=== PATIENT | female | born 1945 | race Caucasian/White ===

== ENCOUNTER 2018-07-23 09:12 | Inpatient (IN) ==
[2018-07-23] MEDS ORDERED: Metoprolol Tartrate 25 MG Tablet PO SCH (09:42)
[2018-07-23] MEDS ORDERED: Chlorhexidine Gluconate 2% 1 Pack (2 Cloths) TOPICAL SCH (09:42)
[2018-07-23] MEDS ORDERED: Ciprofloxacin 400 MG/200 ML 400 MG/200 ML PIGGYBACK IV.SIG SCH (10:00)
[2018-07-23] MEDS ORDERED: Sodium Chlor 0.9% Inj 500 ML IV.SIG SCH (10:00)
[2018-07-23] MEDS ORDERED: Neostigmine Inj 5 MG/5 ML Syringe IV.PUSH ONE (12:46)
[2018-07-23] MEDS ORDERED: Lidocaine PF 1% Inj 5 ML Syringe OTHER ONE (12:46)
[2018-07-23] MEDS ORDERED: Glycopyrrolate Inj 1 MG/5 ML Syringe IV.PUSH ONE (12:46)
[2018-07-23] MEDS ORDERED: Post-op Orders (for Pharmacy) OTHER ONE (14:47)
[2018-07-23] MEDS ORDERED: Naloxone Inj 0.4 MG/ML Vial IV.PUSH PRN ×2 (14:47→14:50)
[2018-07-23] MEDS ORDERED: HYDROmorphone PCA Inj 6 MG/30 ML PCA.VIAL PCA PRN (14:50)
--- NOTE | 2018-07-23 15:02 | P.OP ---
- Preoperative Diagnosis (1) Lymphoma of gastrointestinal tract - Postoperative Diagnosis (1) Lymphoma of gastrointestinal tract Date of procedure: 07/23/18 Procedure: Ileocecectomy Anesthesia: GETA Surgeon: Kevin Medina MD Machine Tack Puller: Gordo HYATT Estimated blood loss (mL): 50 Pathology: other (terminal ileum, cecum, including large lymphoma off cecum) Operation and Findings: Indications: The patient is a 73-year-old female found to have a large nearly obstructing cecal mass on colonoscopy while under surveillance for a possible lymphoma in that site previously. I was consulted for urgent surgical intervention. 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 The patient underwent PET CT scan which showed extremely hypermetabolic mass in the cecum and 1 para-aortic hypermetabolic lymph node. The patient was seen by Dr. Fournier of oncology. After discussion with Dr. Fournier, my partner Dr. Gregg, and the patient we decided to proceed with surgical intervention for the large near obstructing lymphoma of the cecum. Primary reasons are due to the near obstructing nature with weight loss, vomiting; and due to concerns for possible bowel perforation during chemotherapy treatment secondary to rapid shrinkage of this particular type of lymphoma. Operative findings: Very large mass of the cecum and proximal ascending colon. The ureter was beginning to be pulled up towards the colon and was identified and avoided. The patient was taken to the operating room placed in supine position. General endotracheal anesthesia was induced and the abdomen was prepped and draped in usual sterile fashion. Surgical timeout was performed to verify correct patient procedure and site. Appropriate preoperative antibiotics were administered. A midline laparotomy incision was made. Dissection carried out through subcutaneous tissue with electrocautery and hemostasis achieved. Fascia was incised with electrocautery and the peritoneum entered sharply. The abdominal cavity was entered and there was noted to be the large mass in the right lower to mid abdomen which was fairly mobile. Peritoneum of the terminal ileum and ascending colon was incised with electrocautery. The hepatic flexure was taken down with the Enseal bipolar cautery device. The second portion of the duodenum was identified and avoid. The ureter on the right side was pulled up towards the colon. This was carefully identified and kept laterally from the colonic dissection. A point on the terminal ileum was chosen for transection. A defect in the mesentery was created and it was divided with a 75 mm blue load CECILE. An area in the ascending colon distal to the mass was divided with the CECILE 75 mm blue load stapler. The mesentery was divided with the Enseal device. A 0 Vicryl tie was placed on the ileocolic pedicle. The terminal ileum and ascending colon were then anastomosed in a [id number] functional end-to-end fashion using the 75 mm blue load stapler and the TX 60 was used to close the common enterotomy. There is no bleeding or tension at the anastomosis site. 3-0 silk suture was placed at the end of the staple line. The anastomosis was widely patent. The mesentery defect was then closed with running 2-0 silk suture. The abdomen was irrigated copiously with 2 L of warm normal saline. The omentum was replaced over the intestines. The fascia was then closed with running #1 looped PDS suture. The wound was irrigated and skin closed with a wide skin stapler. The patient tolerated the procedure well and was extubated and taken to PACU in stable condition.
[2018-07-23] MEDS ORDERED: Morphine Inj 4 MG/ML Vial ONE (15:10)
[2018-07-23] MEDS ORDERED: fentaNYL Citrate Inj 100 MCG/2 ML Ampul ONE (15:10)
[2018-07-23] MEDS ORDERED: *Ondansetron Inj 4 MG/2 ML Vial PERIprocedural Use ONLY ONE (15:15)
[2018-07-23] MEDS: Ketorolac Inj 30 MG/ML (IVP) Vial IV.PUSH SCH ×2 (16:02→20:30)
[2018-07-23] MEDS: hydroCHLOROthiazide 25 MG Tablet PO SCH (20:32)
[2018-07-23] MEDS ORDERED: PROPRANOLOL 80 MG PO SCH (21:00)
[2018-07-24] MEDS: Ketorolac Inj 30 MG/ML (IVP) Vial IV.PUSH SCH ×4 (02:37→23:53)
[2018-07-24] MEDS: Levothyroxine 88 MCG Tablet PO SCH (05:06)
[2018-07-24 05:37] LABS: Baso % (Auto) 0.1 % (0.0-2.0); Hematocrit 33.8 % (35.0-46.0); Hemoglobin 11.5 gm/dL (11.6-15.3); Lymph # (Auto) 0.5 th/mm3 (1.0-4.8); Lymph % (Auto) 11.9 % (9.0-44.0); Mean Corpuscular HGB Conc 33.9 % (32.0-36.0); Mean Corpuscular Hemoglobin 31.2 pg (27.0-34.0); Mean Corpuscular Volume 91.9 fL (80.0-100.0); Mean Platelet Volume 7.4 fL (7.0-11.0); Mono # (Auto) 0.1 th/mm3 (0.0-0.9); Mono % (Auto) 3.4 % (0.0-8.0); Neut # (Auto) 3.6 th/mm3 (1.8-7.7); Neut % (Auto) 84.6 % (16.0-70.0); Platelet Count 277 th/mm3 (150-450); Red Blood Count 3.68 mil/mm3 (4.00-5.30); Red Cell Distribution Width 13.1 % (11.6-17.2); White Blood Count 4.3 th/mm3 (4.0-11.0)
[2018-07-24 06:08] LABS: Carbon Dioxide 25.9 meq/L (21.0-32.0); Potassium 4.6 meq/L (3.5-5.1)
[2018-07-24] MEDS: hydroCHLOROthiazide 25 MG Tablet PO SCH ×2 (08:47→20:14)
[2018-07-24] MEDS: Propranolol 40 MG Tablet PO SCH ×2 (08:47→20:12)
--- NOTE | 2018-07-24 09:04 | P.PNGS ---
Subjective Interval history: Tolerating clears. In the chair. Pain controlled with enterer. Physical Exam Vital signs: Vital Signs 07/23/18 10:42 07/23/18 14:57 07/23/18 15:00 Temperature 97.5 F L 97.6 F Pulse Rate 69 65 62 Respiratory Rate 20 12 12 Blood Pressure 111/50 L 156/69 H 147/65 H Pulse Oximetry 100 100 100 07/23/18 15:15 07/23/18 15:30 07/23/18 15:45 Temperature Pulse Rate 57 L 56 L 56 L Respiratory Rate 12 12 11 L Blood Pressure 145/65 H 139/65 138/62 Pulse Oximetry 97 95 95 07/23/18 16:00 07/23/18 16:15 07/23/18 16:30 Temperature 97.6 F Pulse Rate 55 L 56 L 53 L Respiratory Rate 12 15 16 Blood Pressure 136/59 L 133/63 130/60 Pulse Oximetry 91 L 95 97 07/23/18 16:32 07/23/18 18:09 07/23/18 18:37 Temperature Pulse Rate Respiratory Rate 19 5 L 5 L Blood Pressure Pulse Oximetry 07/23/18 20:00 07/23/18 22:54 07/24/18 00:00 Temperature 97.2 F L 97.1 F L Pulse Rate 56 L 55 L Respiratory Rate 16 17 18 Blood Pressure 103/58 L 106/54 L Pulse Oximetry 90 L 97 07/24/18 08:00 Temperature 97.4 F L Pulse Rate 58 L Respiratory Rate 16 Blood Pressure 108/54 L Pulse Oximetry 98 Intake & Output 07/23/18 07/24/18 07/24/18 18:59 06:59 18:59 Intake Total 2300 / 2300 1920 / 1920 Output Total 220 / 220 500 / 500 Balance 2080 / 2080 1420 / 1420 Weight 68.8 kg 69.1 kg Intake: IV 1800 / 1800 1200 / 1200 LR 1000 mL Inj 1,000 ML @ 100 1000 / 1000 mls/hr IV.CONT .Q10H DOUG Rx#: [id number] Ofirmev Inj 1,000 mg In 100 ml 500 / 500 200 / 200 @ 400 mls/hr IV.SIG Q6H DOUG Rx# :[id number] Cipro 400 MG/200 ML Inj 400 mg 200 / 200 In 200 ml @ 200 mls/hr IV.SIG TIN STACKER DOUG Rx#:[id number] LR 1000 mL Inj 1,000 ML @ 30 1000 / 1000 mls/hr IV.SIG .Q24H DOUG Rx#: [id number] Flagyl 500 MG Inj 100 ML @ 100 100 / 100 mls/hr IV.SIG TIN STACKER DOUG Rx#: [id number] Oral 720 / 720 Anesthesia Amount 500 / 500 Output: Urine 250 / 250 Estimated Blood Loss 50 / 50 Urine Amount (Catheter) 170 / 170 250 / 250 Indwelling Urethral Catheter 170 / 170 250 / 250 Other: # Voids 1 Weight On Admission 64.2 kg Narrative: NAD Abd: soft, bandage c/d/i - Urinary Catheter Management Indwelling Urethral Catheter Cath placed during this visit: yes, but has since been removed by the nurse Reason for continuing: Decision to DC catheter Insertion date: 07/23/18 Insertion time: 13:05 Removal date: 07/24/18 Removal time: 05:18 Results - Labs 07/24/18 05:17 07/24/18 05:17 Laboratory Results - last 24 hr 07/23/18 07/24/18 07/24/18 10:15 05:17 05:17 WBC 4.3 RBC 3.68 L Hgb 11.5 L Hct 33.8 L MCV 91.9 MCH 31.2 MCHC 33.9 RDW 13.1 Plt Count 277 MPV 7.4 Neut % (Auto) 84.6 H Lymph % (Auto) 11.9 Cobb % (Auto) 3.4 Eos % (Auto) 0.0 Baso % (Auto) 0.1 Neut # (Auto) 3.6 Lymph # (Auto) 0.5 L Cobb # (Auto) 0.1 Eos # (Auto) 0.0 Baso # (Auto) 0.0 WBC Differential . Differential Comment Auto diff final Sodium 138 Potassium 4.6 Chloride 103 Carbon Dioxide 25.9 Anion Gap 9 BUN 15 Creatinine 0.80 Estimated GFR 70 L Random Glucose 137 H Calcium 8.0 L Blood Type A Positive Blood Type Recheck Required Antibody Screen Negative Assessment and Plan - Plan POD 1 s/p ileocectomy for obstructing cecal lymphoma- stable post op. Fulls Cont enterer OOB to chair and ambulate Rx for norco on chart.
[2018-07-24] MEDS: Enoxaparin Inj 40 MG/0.4 ML Syringe SQ SCH (14:30)
--- NOTE | 2018-07-24 15:06 | ECG ---
Date Performed: 07/23/2018 Time Performed: 11:12:59 PTAGE: 73 years EKG: Sinus rhythm Since the previous tracing, no significant change noted NORMAL ECG PREVIOUS TRACING : 05/31/2007 16.31 DOCTOR: Nan Tolbert Interpretating Date/Time 07/24/2018 15:04:12
[2018-07-25] MEDS: Ketorolac Inj 30 MG/ML (IVP) Vial IV.PUSH SCH ×4 (02:51→20:49)
[2018-07-25] MEDS: Levothyroxine 88 MCG Tablet PO SCH (06:49)
[2018-07-25] MEDS: Propranolol 40 MG Tablet PO SCH ×2 (09:45→20:49)
[2018-07-25] MEDS: hydroCHLOROthiazide 25 MG Tablet PO SCH ×2 (09:45→20:49)
[2018-07-25 12:32] LABS: Hematocrit 29.9 % (35.0-46.0); Hemoglobin 10.3 gm/dL (11.6-15.3); Mean Corpuscular HGB Conc 34.5 % (32.0-36.0); Mean Corpuscular Hemoglobin 31.7 pg (27.0-34.0); Mean Corpuscular Volume 91.7 fL (80.0-100.0); Mean Platelet Volume 7.3 fL (7.0-11.0); Platelet Count 252 th/mm3 (150-450); Red Blood Count 3.26 mil/mm3 (4.00-5.30); Red Cell Distribution Width 13.1 % (11.6-17.2); White Blood Count 4.3 th/mm3 (4.0-11.0)
[2018-07-25 12:50] LABS: Calcium 8.2 mg/dL (8.5-10.1); Carbon Dioxide 30.1 meq/L (21.0-32.0); Potassium 4.3 meq/L (3.5-5.1)
[2018-07-25] MEDS: Enoxaparin Inj 40 MG/0.4 ML Syringe SQ SCH (13:22)
[2018-07-25] MEDS: Estradiol 1 MG Tablet PO SCH (23:07)
[2018-07-26] MEDS: Ketorolac Inj 30 MG/ML (IVP) Vial IV.PUSH SCH ×4 (03:07→21:16)
[2018-07-26] MEDS: Levothyroxine 88 MCG Tablet PO SCH (05:51)
[2018-07-26] MEDS: Propranolol 40 MG Tablet PO SCH ×2 (08:01→21:17)
[2018-07-26] MEDS: hydroCHLOROthiazide 25 MG Tablet PO SCH ×2 (08:02→21:17)
[2018-07-26] MEDS: Enoxaparin Inj 40 MG/0.4 ML Syringe SQ SCH (15:26)
[2018-07-26] MEDS: Estradiol 1 MG Tablet PO SCH (21:17)
[2018-07-27] MEDS: Ketorolac Inj 30 MG/ML (IVP) Vial IV.PUSH SCH ×2 (02:45→09:07)
[2018-07-27] MEDS: Levothyroxine 88 MCG Tablet PO SCH (05:04)
[2018-07-27 05:26] LABS: Baso % (Auto) 0.6 % (0.0-2.0); Eos % (Auto) 0.7 % (0.0-4.0); Hematocrit 28.3 % (35.0-46.0); Hemoglobin 9.7 gm/dL (11.6-15.3); Lymph # (Auto) 0.9 th/mm3 (1.0-4.8); Lymph % (Auto) 31.6 % (9.0-44.0); Mean Corpuscular HGB Conc 34.2 % (32.0-36.0); Mean Corpuscular Hemoglobin 31.1 pg (27.0-34.0); Mean Corpuscular Volume 90.9 fL (80.0-100.0); Mean Platelet Volume 7.5 fL (7.0-11.0); Mono # (Auto) 0.4 th/mm3 (0.0-0.9); Neut # (Auto) 1.6 th/mm3 (1.8-7.7); Neut % (Auto) 53.1 % (16.0-70.0); Platelet Count 238 th/mm3 (150-450); Red Blood Count 3.12 mil/mm3 (4.00-5.30); Red Cell Distribution Width 13.3 % (11.6-17.2); White Blood Count 2.9 th/mm3 (4.0-11.0)
[2018-07-27] MEDS: Propranolol 40 MG Tablet PO SCH (09:07)
[2018-07-27] MEDS: hydroCHLOROthiazide 25 MG Tablet PO SCH (09:07)
--- NOTE | 2018-08-15 20:48 | P.DS ---
Date of admission: 07/23/18 09:12 Primary care physician: Beatriz Simon MD Brief History from admission: 73 yo F with near obstructing large b cell lymphoma of cecum and ascending colon. After discussion with Dr. Shantanu queen onc, she has been scheduled for ileocecal resection, to avoid obstruction and due to risk of perforation of colon during chemotherpy. DS: Diagnosis - Discharge Diagnosis (1) Diffuse large B cell lymphoma Status: Acute (2) Lymphoma of gastrointestinal tract Status: Acute DS: Summary Hospital Course: She did well postop tolerating liquids and then solid diet. Pain eventually controlled with oral medications and she ambulated independently. - Time Spent with Patient Total time spent providing and/or coordinating discharge services: Less than 30 minutes - Quality: VTE Deep Vein Thrombosis/Pulmonary Embolism Present on Admission: No Exam Narrative: NAD Abd: soft, inc c/d/i Results Procedures completed during hospitalization: Ileocecectomy Completed studies during hospitalization: Pending at discharge 07/23/18 16:49 Surgical [PTH] Routine Discharge Plan - Discharge Disposition Patient Disposition: Discharge Home - Discharge Order Discharge Orders: Discharge Order (Routine); Ordered 07/27/18 Ordered By: Lizzy Nazario - Physicians Team Primary Care Provider: Beatriz Simon Attending Provider: Kevin Medina - Rxs /Orders / Referrals /Forms Prescriptions: No Action estradiol 1 mg Tablet 2 mg PO DAILY fluticasone [Allergy Relief (fluticasone)] 50 mcg/actuation [place],Suspension 2 sprays Intranasal HS PRN (Reason: seasonal allergies) levothyroxine 88 mcg Tablet 88 mcg PO DAILY propranolol-hydrochlorothiazid 80-25 mg Tablet 1 tab PO BID simvastatin 20 mg Tablet 20 mg PO QPM Referrals: Beatriz Simon MD [Primary Care Provider] - See Instructions (Office will contact the patient to schedule follow up appointment ) - Discharge Instructions Patient Printed Instructions: Hydrocodone/Acetaminophen (By mouth), Colectomy ( DC), Steristrips (ED)
== END 2018-07-27 15:10 | disposition home or self-care (01) | DRG 825 ==
LOC: HSDI 09:12 → N07 17:06
PROVIDERS: ADMIT Surgery; ATTEND Surgery
CPT/HCPCS: 80048; 85025; 85027; 86850; 86900; 86901; 88307; 88309; 88341; 88342; 88343; 88377; 93005; 94150; 99212; 99215; G0461; G0462; G0463; J0131; J0744; J1100; J1170; J1650; J1885; J2250; J2270; J2405; J2704; J2710; J3010; J7120